=== PATIENT | male | born 1995 | race Hispanic/Latino ===

== ENCOUNTER 2018-10-16 15:39 | Emergency (ER) | payer BC ==
[2018-10-16 15:44] VITALS: RESP 18
[2018-10-16] MEDS ORDERED: Sodium Chloride 0.9% 1,000 ML IV STA (16:41)
--- NOTE | 2018-10-16 16:50 | ED PDOC ---
Syncope/Near Syncope/Dizziness Time Seen by Provider: 10/16/18 15:47 Chief Complaint (Nursing): Chest Pain Chief Complaint (Provider): Near syncope History Per: Patient History/Exam Limitations: no limitations Onset/Duration Of Symptoms: Mins (just prior to arrival) Current Symptoms Are (Timing): Still Present Activity At Onset Of Symptoms: Walking Seizure Or Post-ictal Symptoms: None Severity: Moderate Additional Complaint(s): 23 year old male with a past medical history of insomnia and cluster headaches presents to the ED for an evaluation of a near syncopal episode that occurred just prior to arrival. Patient states that just prior to arrival he was walking with friends, when he suddenly felt lightheaded and felt as though he was going to pass out. Patient states that everything seemed blurry, and he started experiencing tingling in his arms and shoulders. Patient admits to heavy drinking last night and using cocaine, which he states he has used before. Patient reports getting 5x hours of sleep last night, and taking a Xanax tab this morning because he felt anxious (Xanax prescribed to him for insomnia). Patient is unsure if the syncopal episode is related to the events of last night. PMD: In [place], non locally. Past Medical History Reviewed: Historical Data, Nursing Documentation, Vital Signs Vital Signs: Last Vital Signs Temp 98.4 F 10/16/18 15:40 Pulse 100 H 10/16/18 15:40 Resp 18 10/16/18 15:40 BP 141/100 H 10/16/18 15:40 Pulse Ox 98 10/16/18 15:40 EMERY Report Viewed: Yes - Medical History PMH: Anxiety Other PMH: insomnia, cluster headaches - Surgical History Surgical History: No Surg Hx - Family History Family History: States: Diabetes, Hypertension Other Family History: thyroid disease - Social History Current smoker - smoking cessation education provided: Yes (cigars) Alcohol: Social Drugs: Cocaine - Immunization History Hx Tetanus Toxoid Vaccination: No Hx Influenza Vaccination: Yes Hx Pneumococcal Vaccination: No - Allergies Allergies/Adverse Reactions: Allergies Allergy/AdvReac Type Severity Reaction Status Date / Time No Known Allergies Allergy Verified 10/16/18 15:44 Review of Systems ROS Statement: Except As Marked, All Systems Reviewed And Found Negative ENT: Positive for: Other (blurry vision) Cardiovascular: Positive for: Light Headedness Neurological: Positive for: Other (tingling of arms and shoulders) Physical Exam - Reviewed Nursing Documentation Reviewed: Yes Vital Signs Reviewed: Yes - Physical Exam Appears: Positive for: Well, Non-toxic, No Acute Distress Head Exam: Positive for: ATRAUMATIC, NORMOCEPHALIC Skin: Positive for: Warm, Dry Eye Exam: Positive for: EOMI, PERRL ENT: Negative for: Pharyngeal Erythema, Tonsillar Exudate Neck: Positive for: Painless ROM, Supple Cardiovascular/Chest: Positive for: Tachycardia (regular rhythm) Respiratory: Positive for: Normal Breath Sounds. Negative for: Respiratory Distress Gastrointestinal/Abdominal: Positive for: Soft. Negative for: Tenderness Back: Positive for: Normal Inspection. Negative for: Muscle Spasm Extremity: Positive for: Normal ROM. Negative for: Deformity Neurologic/Psych: Positive for: Alert, Oriented (3x), Mood/Affect (anxious mood/affect). Negative for: Motor/Sensory Deficits - Laboratory Results Result Diagrams: 10/16/18 17:00 10/16/18 17:00 - ECG ECG: Positive for: Interpreted By Me, Viewed By Me ECG Rhythm: Positive for: Normal QRS, Normal ST Segment, Sinus Rhythm (normal) Rate: 93 O2 Sat by Pulse Oximetry: 98 (RA) Pulse Ox Interpretation: Normal Medical Decision Making Medical Decision Makin:47 Initial impression: 23 year old male with a near syncopal episode. Differential diagnoses include, but are not limited to dehydration, electrolyte abnormality, thyroid disorder, and mild withdrawal. Initial plan: * alcohol serum * cmp * magnesium * phosphorous * TSH * CBC with differential * IV NS 1,000 ml IV 1,000 mls/hr * reevaluation 1800 Labs unremarkable Pt feels better. STable for discharge. Scribe Attestation: Documented by Trupti Smith, acting as a scribe for Sima Siddiqi MD. Provider Scribe Attestation: All medical record entries made by the Scribe were at my direction and personally dictated by me. I have reviewed the chart and agree that the record accurately reflects my personal performance of the history, physical exam, medical decision making, and the department course for this patient. I have also personally directed, reviewed, and agree with the discharge instructions and disposition Disposition - Clinical Impression Clinical Impression: Near syncope Counseled Patient/Family Regarding: Studies Performed, Diagnosis, Need For Followup - Disposition Referrals: [facility] [place] [Outside] [facility] [Outside] Disposition: Routine/Home Disposition Time: 18:31 Condition: IMPROVED Additional Instructions: FOLLOW UP WITH YOUR DOCTOR OR [facility] IN 24-48 HOURS FOR REEVALUATION DRINK PLENTY OF HYDRATING FLUIDS AND AVOID ANY DRUGS OR ALCOHOL Instructions: Near Fainting (DC)
[2018-10-16 17:17] LABS: BASO # 0.1 K/uL (0.0-0.2); BASO % 1.1 % (0.0-2.0); EOS # 0.1 K/uL (0.0-0.7); EOS % 1.6 % (0.0-4.0); HEMOGLOBIN 14.3 g/dL (12.0-18.0); LYMPH # 1.3 K/uL (1.0-4.3); LYMPH % 23.6 % (20.0-40.0); MEAN CELL VOLUME 87.4 fl (80.0-94.0); MEAN CORPUSCULAR HEMOGLOBIN 29.2 pg (27.0-31.0); MEAN CORPUSCULAR HGB CONC 33.5 g/dL (33.0-37.0); MEAN PLATELET VOLUME 8.2 fl (7.2-11.7); MONO # 0.6 K/uL (0.0-0.8); MONO % 10.5 % (0.0-10.0); NEUT # 3.6 K/uL (1.8-7.0); NEUT % 63.2 % (50.0-75.0); NRBC % 0.1 % (0.0-0.0); RBC 4.9 Mil/uL (4.40-5.90); RED CELL DISTRIBUTION WIDTH 14.2 % (11.5-14.5); WHITE BLOOD COUNT 5.7 K/uL (4.8-10.8)
[2018-10-16 17:23] LABS: ALB/GLOB RATIO 1.4 (1.0-2.1); ALBUMIN 4.8 g/dL (3.5-5.0); ALT/SGPT 78 U/L (21-72); AST/SGOT 68 U/L (17-59); BLOOD UREA NITROGEN 13 mg/dl (9-20); CALCIUM 9.7 mg/dL (8.4-10.2); GFR NON-AFRICAN AMERICAN > 60
[2018-10-16 18:38] VITALS: BP 137/77; PULSE 92; TEMP 98.7; O2SAT 99
--- NOTE | 2018-10-18 06:18 | CARD ---
APPROVED REPORT Date of service: 10/16/2018 EKG Measurement Heart [id number] ME [id number] <Conclusion> Normal sinus rhythm Normal ECG
== END 2018-10-16 18:38 | disposition home or self-care (01) ==
LOC: H.ER 15:39
DX: R55 Syncope and collapse (principal); F17.290 Nicotine dependence, other tobacco product, uncomplicated
CPT/HCPCS: 80053; 83735; 84100; 84443; 85025; 93005; 96360; 99284; G0480; J7030